=== PATIENT | female | born 1975 | race Caucasian/White ===

== ENCOUNTER → 2016-06-30 | Outpatient (CLI) | payer OTHER ==
[~2016-06-30] MED LIST: ADVIL,NUPRIN,M200 MG PO; CAMILA0.35 MG PO; ENDOCET 5-3251 EACH PO; FIORICET,ESG1 TABLET PO; GLYBURIDE2.5 MG PO; IBUPROFEN800 MG PO; IRON325 MG PO; NITROFURANTOIN100 MG PO; PRENATAL TABLE1 EAC3 PO
== END | disposition home or self-care (01) ==
LOC: RAD 06-06 15:30
DX: Z30.40 Encounter for surveillance of contraceptives, unspecified (principal); Z09 Encounter for follow-up examination after completed treatment for conditions other than malignant neoplasm; Z98.51 Tubal ligation status
CPT/HCPCS: 74740